=== PATIENT | male | born 1960 | race Caucasian/White ===

== ENCOUNTER 2023-07-29 08:05 | Outpatient (CLI) | payer BC | END 2023-07-29 08:06 | disposition home or self-care (01) | LOC: CSHWCC 08:05 | PROVIDERS: ATTEND Nurse Practitioner Family | DX: T81.31XD Disruption of external operation (surgical) wound, not elsewhere classified, subsequent encounter (principal); C44.02 Squamous cell carcinoma of skin of lip | CPT/HCPCS: 99213; G0463 ==